=== PATIENT | female | born 1995 | race Caucasian/White ===

== ENCOUNTER 2019-04-05 09:16 | Emergency (ER) | payer SELFPAY ==
[~2019-04-05] VITALS: Ht 162.6 cm; Wt 56.7 kg
[2019-04-05 09:20] VITALS: BP_SYST 124
--- NOTE | 2019-04-05 09:25 | NUR ---
Patient reports having bed bugs. To facilitate infection control pt remains in triage and will be seen there.
--- NOTE | 2019-04-05 09:37 | NUR ---
ER Dr. Terry at bedside examining patient.
--- NOTE | 2019-04-05 09:45 | NUR ---
Patient given written and verbal discharge instructions and verbalizes understanding. ER MD discussed with patient the results and treatment provided. Patient in stable condition. ID arm band removed. Rx of Prednisone, Atarax given. Patient educated on pain management and to follow up with PMD. Pain Scale 0/10. Opportunity for questions provided and answered. Medication side effect fact sheet provided.
== END 2019-04-05 09:46 | disposition home or self-care (01) ==
LOC: SED 09:16
DX: S80.862A Insect bite (nonvenomous), left lower leg, initial encounter (principal); S80.861A Insect bite (nonvenomous), right lower leg, initial encounter; L08.9 Local infection of the skin and subcutaneous tissue, unspecified; Z88.8 Allergy status to other drugs, medicaments and biological substances; W57.XXXA Bitten or stung by nonvenomous insect and other nonvenomous arthropods, initial encounter; Y93.89 Activity, other specified; Y92.89 Other specified places as the place of occurrence of the external cause; Y99.8 Other external cause status
CPT/HCPCS: 99283